=== PATIENT | female | born 1950 | race Hispanic/Latino ===

== ENCOUNTER 2019-12-30 13:19 | Outpatient (CLI) | payer MEDICARE, MEDICAID ==
--- NOTE | 2019-12-30 14:28 | MMO ---
Bilateral MAMMO Bilat Screen [facility]. CLINICAL HISTORY: Patient is 69 years old and is seen for screening. The patient has no family history of breast cancer. The patient has no personal history of cancer. VIEWS: The views performed were: bilateral craniocaudal with tomosynthesis and bilateral mediolateral oblique with tomosynthesis. FILMS COMPARED: The present examination has been compared to a prior imaging study performed at [facility] on 11/16/2016. This study has been interpreted with the assistance of computer-aided detection. MAMMOGRAM FINDINGS: There are scattered fibroglandular densities. There are stable calcifications seen in both breasts. There are no suspicious masses, suspicious calcifications, or new areas of architectural distortion. IMPRESSION: THERE IS NO MAMMOGRAPHIC EVIDENCE OF MALIGNANCY. A ROUTINE FOLLOW-UP MAMMOGRAM IN 1 YEAR IS RECOMMENDED. THE RESULTS OF THIS EXAM WERE SENT TO THE PATIENT. ACR BI-RADS Category 2 - Benign finding MAMMOGRAPHY NOTE: 1. A negative mammogram report should not delay a biopsy if a dominant of clinically suspicious mass is present. 2. Approximately 10% to 15% of breast cancers are not detected by mammography. 3. Adenosis and dense breasts may obscure an underlying neoplasm. Reported by: AQUILES REYNOSO MD Electonically Signed: [id number]
== END 2019-12-30 13:20 | disposition home or self-care (01) ==
LOC: BICMAMMO 13:19
PROVIDERS: ATTEND Family Medicine
DX: Z12.31 Encounter for screening mammogram for malignant neoplasm of breast (principal)
CPT/HCPCS: 77063; 77067

== ENCOUNTER 2020-03-03 07:50 | Outpatient (CLI) | payer MEDICARE, MEDICAID ==
[2020-03-03 11:31] LABS: Bilirubin Neg (Negative); Blood, Urine Negative (Negative); Clarity Clear (Clear); Glucose, Urine (Dipstick) Normal (Negative); Ketone, Urine Negative (Negative); Leukocyte 25 (Negative); Nitrite Negative (Negative); Protein, Urine (Dipstick) Negative (Neg-Trace); Specific Gravity, Urine 1.015 (1.002-1.036); Urobilinogen Normal mg/dL (Less than 2)
[2020-03-03 11:35] LABS: #Eosinphils 0.1 10x3/uL (0.0-0.5); #Monocytes 0.4 10x3/uL (0.0-1.1); #Neutrophils 5.3 10x3/uL (1.5-8.4); %Basophils 0.4 % (0.0-2.0); %Eosinophils 1.8 % (0.0-6.0); %Lymphocytes 23.7 % (18.0-47.0); %Monocytes 5.2 % (0.0-10.0); %Neutrophils 68.5 % (40.0-75.0); Hemoglobin 14.5 g/dL (12.0-16.0); Mean Corpuscular HGB CONC 33.2 G/DL (32.0-36.0); Mean Corpuscular Hemoglobin 32.2 PG (27.0-33.0); Mean Corpuscular Volume 97.1 fl (80.0-100.0); Mean Platelet Volume 12.5 fl (7.4-10.4); Platelet Count 159 10x3/uL (130-400); RBC Distribution Width 11.6 % (11.5-14.5); White Blood Cell (WBC) Count 7.7 10x3/uL (4.5-11.0)
[2020-03-03 12:10] LABS: RBC/HPF 0-3 HPF (0-3); Squamous Epithelial 0-3 HPF (0-3)
[2020-03-03 12:11] LABS: Bacteria/HPF Rare-Few HPF (None Seen)
[2020-03-04 06:06] LABS: SARS-CoV-2 MS2 Positive; SARS-CoV-2 N Gene Negative; SARS-CoV-2 S Gene Negative; SARS-CoV-2 by NAA Not Detected (NotDetected); SARS-CoV-2 orf1ab Negative
== END 2020-03-03 07:51 | disposition home or self-care (01) ==
LOC: LABBT 07:50
PROVIDERS: ATTEND Orthopaedic Surgery Hand Surgery
DX: Z01.818 Encounter for other preprocedural examination (principal); G56.02 Carpal tunnel syndrome, left upper limb; Z20.822 Contact with and (suspected) exposure to COVID-19
CPT/HCPCS: 81001; 85025; 93005; U0003; 87635; 93010

== ENCOUNTER 2020-03-06 07:01 | Day surgery (SDC) | payer MEDICARE, MEDICAID ==
[2020-03-04 13:05] VITALS: BMI 27.0
[2020-03-06] MEDS ORDERED: Dexamethasone 20 MG/5 ML VIAL ONE (09:22)
[2020-03-06] MEDS ORDERED: Ondansetron PF 4 MG/2 ML Vial ONE (09:22)
[2020-03-06] MEDS ORDERED: PROPOFOL 200 MG/20 ML VIAL ONE (09:22)
[2020-03-06] MEDS ORDERED: Lidocaine 1% PF 5 ML VIAL ONE (09:22)
[2020-03-06] MEDS ORDERED: Ketorolac Tromethamine 30 MG/ML VIAL ONE (09:22)
[2020-03-06] MEDS ORDERED: Bupivacaine PF 0.5% 30 ML VIAL ONE (09:34)
[2020-03-06] MEDS ORDERED: Bacitracin Zinc Ointment 30 gm TUBE ONE (09:34)
[2020-03-06] MEDS ORDERED: Fentanyl 100 MCG/2 ML VIAL ONE (09:39)
[2020-03-06] MEDS ORDERED: Betamet Acet/Betamet Na Ph 30 MG/5 ML VIAL ONE (09:40)
--- NOTE | 2020-03-06 12:52 | OP ---
DATE OF PROCEDURE: 03/06/2020 PREOPERATIVE DIAGNOSIS: Left carpal tunnel syndrome. POSTOPERATIVE DIAGNOSIS: Left carpal tunnel syndrome. PROCEDURE PERFORMED: Left carpal tunnel release. No tenosynovectomy indicated. SPECIMENS: None. TOURNIQUET TIME: 12 minutes. ESTIMATED BLOOD LOSS: Less than 5 mL. INDICATION: History and clinical exam consistent with carpal tunnel syndrome and EMG findings consistent with same. She had failed conservative treatment to include injection. DESCRIPTION OF PROCEDURE: After successful general endotracheal anesthesia, the limb was prepped and draped. Time-out was done appropriately and we had the tourniquet inflated after limb exsanguination. A 2.5 cm incision was outlined in line with the ring finger, carried from the Wolf cardinal line to 5 mm distal volar wrist flexion crease. Incision was carried through skin and subcutaneous tissue, identified transverse carpal ligament. At a point in its midportion, just ulnar to the insertion of the palmaris longus, we made our first incision with [place] blade, identified underlying contents and protected. We then used direct visualization to release the transverse carpal ligament from here distally and spare the nerves were the patient had a type 2 takeoff of the motor branch. Under direct visualization, we did the same release from the midportion proximally until it was completely released. We released the tourniquet, obtained hemostasis. Placed 3 mL Celestone in the wound. Closed the incision with interrupted 4-0 nylon in a mattress pattern and the patient left the operating room in a bulky dressing. No evidence of anesthetic or operative complication. Job ID: [id number]
== END 2020-03-06 11:13 | disposition home or self-care (01) ==
LOC: SDC 07:01
PROVIDERS: ATTEND Orthopaedic Surgery Hand Surgery
PROC: 01N50ZZ Release Median Nerve, Open Approach (ICD-10-PCS; principal; 2020-03-06)
DX: G56.02 Carpal tunnel syndrome, left upper limb (principal); M19.90 Unspecified osteoarthritis, unspecified site
CPT/HCPCS: J0690; J0702; J3010; S0020

== ENCOUNTER 2021-07-30 12:35 | Outpatient (CLI) | payer MEDICARE, MEDICAID | END 2021-07-30 12:36 | disposition home or self-care (01) | LOC: BICMAMMO 12:35 | PROVIDERS: ATTEND Family Medicine | DX: Z12.31 Encounter for screening mammogram for malignant neoplasm of breast (principal) | CPT/HCPCS: 77063; 77067 ==